=== PATIENT | female | born 1975 | race Hispanic/Latino ===

== ENCOUNTER 2018-02-12 15:30 | Inpatient (IN) | payer MEDICAID ==
[~2018-02-12] VITALS: Ht 165.1 cm; Wt 109.8 kg
[2018-02-12 17:29] LABS: HEMATOCRIT 33.9 % (36-48); MEAN CORPUSCULAR HEMOGLOBIN 27.1 pg (27.0-33.0); MEAN CORPUSCULAR HGB CONC 33.3 g/dL (32.0-36.0); MEAN CORPUSCULAR VOLUME 81.2 fL (79-99); PLATELET COUNT (AUTO) 204 K/uL (130-400); RED BLOOD CELL COUNT(AUTO) 4.18 MIL/uL (4.00-5.50); RED CELL DISTRIBUTION WIDTH 14.2 % (11.0-15.5); WHITE BLOOD COUNT (AUTO) 9.7 K/uL (4.8-10.8)
[2018-02-13] MEDS ORDERED: CEFAZOLIN SODIUM 1 GM VIAL IVP PRN (05:45)
[2018-02-13] MEDS ORDERED: LACTATED RINGERS 1000ML 1,000 ML IV SCH (05:45)
[2018-02-13] MEDS ORDERED: PHENYLEPHRINE HCL 10 MG/ML 1ML VIAL IV ONE (07:32)
[2018-02-13] MEDS ORDERED: ONDANSETRON HCL 4 MG/2 ML VIAL ONE (07:32)
[2018-02-13] MEDS ORDERED: OXYTOCIN 10 UNIT/1ML 10ML VIAL ONE (07:32)
[2018-02-13] MEDS ORDERED: DEXAMETHASONE SOD PHOSPHATE 10MG/ML 1ML VIAL ONE (07:32)
[2018-02-13 09:20] VITALS: BP 132/73
[2018-02-13] MEDS ORDERED: PNV1TABL17 PO (09:38)
[2018-02-13] MEDS ORDERED: OXYTOCIN-LR 20 UNITS/1000 ML 1,000 ML IV PRN (10:53)
[2018-02-13] MEDS ORDERED: DEXTROSE 5 %-0.45 % NACL 1,000 ML IV PRN (11:00)
[2018-02-13] MEDS ORDERED: MEPERIDINE-PF 75 MG/ML SYG IM PRN (11:00)
[2018-02-13] MEDS ORDERED: SODIUM CHLORIDE 0.9% 10 ML VIAL IVP PRN (11:00)
[2018-02-13] MEDS ORDERED: PROMETHAZINE HCL 25 MG/ML 1ML AMPULE IM PRN ×2 (11:00→11:30)
[2018-02-13] MEDS ORDERED: NALOXONE HCL 0.4 MG/1 ML ML IVP PRN (11:30)
[2018-02-13] MEDS ORDERED: HYDROCODONE/ACETAMINOPHEN 5/325 MG TAB PO PRN ×2 (11:30)
[2018-02-13] MEDS ORDERED: ONDANSETRON HCL 4 MG/2 ML 8 MG in SODIUM CHLORIDE 0.9% 50 ML IVP NR (11:30)
[2018-02-13] MEDS ORDERED: EPHEDRINE SULFATE 50 MG/ML AMPULE IVP PRN (11:30)
[2018-02-13] MEDS ORDERED: MORPHINE SULFATE 2 MG/ML 1ML SYG IVP PRN (11:30)
[2018-02-13] MEDS ORDERED: ONDANSETRON HCL 4 MG/2 ML VIAL IVP PRN ×2 (11:30)
[2018-02-13] MEDS ORDERED: METOCLOPRAMIDE 10 MG/2 ML VIAL IVP PRN (11:30)
[2018-02-13] MEDS ORDERED: DiphenhydrAMINE HCL 50 MG/ML VIAL IVP PRN (11:30)
[2018-02-13 12:27] VITALS: BP 130/74
[2018-02-13] MEDS ORDERED: CALDOLOR 800MG+NS 250ML 250 ML IV ONE (13:14)
[2018-02-13] MEDS ORDERED: OXYTOCIN 10 USP UNITS/ML ONE (13:42)
[2018-02-13 16:00] VITALS: BP 118/72
[2018-02-13 20:33] VITALS: BP 113/69
[2018-02-13] MEDS: CALDOLOR 800MG+NS 250ML 250 ML IV SCH (21:07)
[2018-02-14] VITALS (7 sets, daily range): BP systolic 104–121; BP diastolic 63–74
[2018-02-14] MEDS: CALDOLOR 800MG+NS 250ML 250 ML IV SCH (05:24)
[2018-02-14 05:41] LABS: HEMATOCRIT 26.5 % (36-48); MEAN CORPUSCULAR HEMOGLOBIN 27.3 pg (27.0-33.0); MEAN CORPUSCULAR VOLUME 80.3 fL (79-99); PLATELET COUNT (AUTO) 155 K/uL (130-400); RED CELL DISTRIBUTION WIDTH 13.9 % (11.0-15.5); WHITE BLOOD COUNT (AUTO) 12.5 K/uL (4.8-10.8)
[2018-02-14] MEDS ORDERED: DIPHENHYDRAMINE HCL 25 MG CAPSULE PO PRN (07:45)
[2018-02-14] MEDS ORDERED: ACETAMINOPHEN EXTRA STRENGTH 500 MG TABLET PO PRN (07:45)
[2018-02-14] MEDS ORDERED: BISACODYL 10 MG SUPP.RECT RC PRN (07:45)
[2018-02-14] MEDS ORDERED: HYDROCODONE/ACETAMINOPHEN 5/325 MG TAB PO PRN (07:45)
[2018-02-14] MEDS ORDERED: ACETAMINOPHEN-CODEINE 300/30MG TAB PO PRN (07:45)
[2018-02-14] MEDS: DOCUSATE SODIUM 100 MG CAP PO SCH ×2 (10:05→21:20)
[2018-02-14] MEDS: SIMETHICONE 80 MG TAB.CHEW PO PRN ×4 (10:05→21:20)
[2018-02-14 13:12] LABS: HEPATITIS Bs ANTIGEN SCREEN P Negative (Negative)
[2018-02-14] MEDS: IBUPROFEN 600 MG TABLET PO PRN ×2 (13:34→18:57)
[2018-02-14] MEDS: DIPH,PERTUSS(ACELL),TET VAC/PF 0.5 ML VIAL IM SCH (13:51)
[2018-02-15] MEDS: IBUPROFEN 600 MG TABLET PO PRN ×3 (01:40→15:15)
[2018-02-15 05:07] VITALS: BP 115/75
[2018-02-15 07:43] VITALS: BP 101/61
[2018-02-15] MEDS: DIPH,PERTUSS(ACELL),TET VAC/PF 0.5 ML VIAL IM SCH (07:45)
[2018-02-15] MEDS: DOCUSATE SODIUM 100 MG CAP PO SCH (09:26)
[2018-02-15] MEDS: SIMETHICONE 80 MG TAB.CHEW PO PRN ×2 (09:26→15:15)
[2018-02-15 12:21] VITALS: BP 115/66
== END 2018-02-15 15:35 | disposition home or self-care (01) | DRG 540 ==
LOC: EDSTATUS 15:30 → LDH 02-13 05:35 → WSH 02-13 09:39
PROVIDERS: ADMIT Obstetrics & Gynecology; ATTEND Obstetrics & Gynecology
PROC: 0UB70ZZ Excision of Bilateral Fallopian Tubes, Open Approach (ICD-10-PCS; 2018-02-13)
PROC: 3E0234Z Introduction of Serum, Toxoid and Vaccine into Muscle, Percutaneous Approach (ICD-10-PCS; 2018-02-13)
PROC: 10D00Z1 Extraction of Products of Conception, Low, Open Approach (ICD-10-PCS; principal; 2018-02-13 07:00)
DX: O34.211 Maternal care for low transverse scar from previous cesarean delivery (principal); O69.81X0 Labor and delivery complicated by cord around neck, without compression, not applicable or unspecified; Z37.0 Single live birth; Z30.2 Encounter for sterilization; Z23 Encounter for immunization; Z3A.39 39 weeks gestation of pregnancy
CPT/HCPCS: 36415; 59510; 85027; 86592; 86850; 86900; 86901; 87340; 88305; 90715; A4344; A4450; A4606; J0690; J1100; J1741; J2370; J2405; J2590; J7120